=== PATIENT | female | born 2000 | race Caucasian/White ===

== ENCOUNTER 2020-10-27 22:13 | Emergency (ER) | payer OTHER ==
[2020-10-27 22:20] VITALS: BP 101/69; PULSE 89; TEMP 98.1; BMI 17.6
[2020-10-27] MEDS ORDERED: ACETAMINOPHEN 500 MG TABLET (FP) PO ONE (22:30)
[2020-10-27] MEDS ORDERED: IBUPROFEN 600 MG TABLET (FP) PO ONE ×2 (23:01→23:14)
[2020-10-27] MEDS ORDERED: ACETAMINOPHEN 325 MG TABLET (FP) ONE (23:14)
== END 2020-10-27 23:21 | disposition home or self-care (01) ==
LOC: JERFT 22:13
DX: S52.125A Nondisplaced fracture of head of left radius, initial encounter for closed fracture (principal)
CPT/HCPCS: 73060-TC-LT-FY; 73070-TC-LT-FY; 73090-TC-LT-FY; 99285-25

== ENCOUNTER 2020-11-19 14:16 | Emergency (ER) | payer OTHER ==
[2020-11-19 14:37] VITALS: BP 92/62; PULSE 103; TEMP 98.8; BMI 17.1
[2020-11-19 16:10] LABS: BASO % 0.6 % (0-2.0); EOS % 2.7 % (0-4.5); HEMATOCRIT 37.6 % (32.4-45.2); HEMOGLOBIN 12.9 GM/dL (10.7-15.3); MCHC 34.3 g/dl (32.0-36.0); MEAN CELL VOLUME 87.5 fl (80-96); MEAN PLT VOLUME 8.8 fl (7.5-11.1); MONO % 7.2 % (3.8-10.2); NEUT % 62.5 % (42.8-82.8); PLATELET COUNT 237 10^3/uL (134-434); RDW 13.1 % (11.6-15.6); WHITE BLOOD COUNT 7.1 K/mm3 (4.0-10.0)
[2020-11-19 16:18] LABS: INR 0.94 (0.83-1.09); PROTHROMBIN TIME (PATIENT) 11.6 SEC (9.7-13.0)
[2020-11-19 16:21] LABS: ACTIVATED PTT 28.4 SECONDS (25.2-36.5)
[2020-11-19 16:37] LABS: CALCIUM 8.9 mg/dL (8.5-10.1)
[2020-11-19 16:38] LABS: ALBUMIN 3.6 g/dl (3.4-5.0); BLOOD UREA NITROGEN 11.7 mg/dL (7-18)
[2020-11-19 16:41] LABS: CREATININE 0.6 mg/dL (0.55-1.3)
[2020-11-19 16:42] LABS: BILIRUBIN,TOTAL 0.3 mg/dL (0.2-1)
== END 2020-11-19 17:15 | disposition home or self-care (01) ==
LOC: JER 14:16
DX: K64.9 Unspecified hemorrhoids (principal)
CPT/HCPCS: 36415; 80053; 82272; 85025; 85610; 85730; 99283-25